=== PATIENT | female | born 1995 | race Caucasian/White ===

== ENCOUNTER 2016-11-21 08:08 | Emergency (ER) | payer OTHER ==
[2016-11-21 08:13] VITALS: BP 124/78; TEMP 98.4; BMI 29.9
[2016-11-21] MEDS ORDERED: LACTATED RINGERS 1,000 ML IV STA (08:25)
[2016-11-21 08:56] LABS: BASOPHILS % (AUTO) 0.3 % (0.0-3.0); EOSINOPHILS % (AUTO) 0.4 % (0.0-7.0); HEMATOCRIT 39.4 % (37.0-47.0); HEMOGLOBIN 13.2 g/dl (12.0-16.0); IMMATURE GRANULOCYTE % (AUTO) 0.7 % (0.0-5.0); LYMPHOCYTES # (AUTO) 2.7 K/uL (0.60-3.4); LYMPHOCYTES % (AUTO) 30.2 (10.0-50.0); MEAN CORPUSCULAR HEMOGLOBIN 27.8 pg (27.0-31.0); MEAN CORPUSCULAR HGB CONC 33.5 (31.8-35.4); MEAN CORPUSCULAR VOLUME 83.1 fl (81.0-99.0); MONOCYTES # (AUTO) 0.7 K/uL (0.4-2.0); MONOCYTES % (AUTO) 7.3 (0-10); NEUTROPHILS # (AUTO) 5.5 K/ul (2.0-6.9); NEUTROPHILS % (AUTO) 61.1; PLATELET COUNT 274 10^3/uL (140-440); RED BLOOD COUNT 4.74 10^6/ul (4.20-5.40); WHITE BLOOD COUNT 9.03 K/ul (4.6-10.2)
[2016-11-21 08:59] LABS: BILIRUBIN,URINE Negative (NEGATIVE); KETONES,URINE Negative (NEGATIVE); LEUKOCYTE ESTERASE ,URINE 1+ (NEGATIVE); NITRITE,URINE Negative (NEGATIVE); PH,URINE 6.5 (5-9); PROTEIN,URINE Negative (NEGATIVE); URINE, BLOOD Negative (NEGATIVE)
[2016-11-21 09:07] LABS: ADD URINE MICROSCOPIC YES
[2016-11-21 09:08] LABS: BACTERIA,URINE 1+ (NOT PRESENT)
--- NOTE | 2016-11-21 09:52 | US ---
EXAM: First trimester OB ultrasound. History: Vaginal bleeding, abdominal pain. Technique: Multiple sonographic images through the pelvis were obtained. Color duplex Doppler was used to interrogate vascular flow. Findings: A single live intrauterine identified with heart rate of 148 beats per minute. Gest ational sac, yolk sac and pole are seen. No fluid in the pelvis. Both ovaries are normal in size. Blood flow is documented within each ovary. 2.7 cm right ovarian cyst. And 0.6 cm small subc horionic hemorrhage. Average gestational age by ultrasound is 7 weeks and 1 day plus or minus 5 days. Estimated date of delivery is 07/09/2017 Impression: Single live intrauterine . Corpus luteal cyst within the right ovary. Small subchorionic hemorrhage.
--- NOTE | 2016-11-21 10:15 | ED.PDOC ---
General ED Provider: Dr. 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 Complaint/Exam Onset/Duration: this am Symptoms Are: Still present Timing: Constant Initial Severity: Moderate Current Severity: Mild Character: Reports: Bright red Aggravating: Reports: None Alleviating: Reports: None Associated Signs and Symptoms: Reports: Abdominal pain, Cramping Related History: Reports: Recent + test Patient Rh Status: Unknown Abdominal Findings: Present: None Adnexal Exam: Present: Normal Findings Differential Diagnoses: Threatened AB Review of Systems - Review Of Systems Constitutional: Reports: No symptoms Eyes: Reports: No symptoms Ears, Nose, Mouth, Throat: Reports: No symptoms Respiratory: Reports: No symptoms Cardiac: Reports: No symptoms GI: Reports: No symptoms : Reports: No symptoms Musculoskeletal: Reports: No symptoms Skin: Reports: No symptoms Neurological: Reports: No symptoms Endocrine: Reports: No symptoms Hematologic/Lymphatic: Reports: No symptoms All Other Systems: Reviewed and Negative Past Medical History - Past Medical History Endocrine: Reports: Unknown Cardiovascular: Reports: Unknown Respiratory: Reports: Unknown Hematological: Reports: Unknown Gastrointestinal: Reports: Unknown Genitourinary: Reports: Unknown Neuro/Psych: Reports: Unknown Musculoskeletal: Reports: Unknown Cancer: Reports: Unknown Last Menstrual Period: 09/06 - Surgical History General Surgical History: Reports: Unknown - Family History Family History: Reports: Unknown - Social History Smoking Status: Former smoker Hx Substance Use: No Alcohol Screening: None Lives: With family Physical Exam - Physical Exam Appearance: Well-appearing, No pain distress, Well-nourished Eyes: AYUSH, EOMI, Conjunctiva clear ENT: Ears normal, Nose normal, Oropharynx normal Neck: Supple Respiratory: Airway patent, Breath sounds clear, Breath sounds equal, Respirations nonlabored Cardiovascular: RRR GI/: Soft, Nontender, No masses, Bowel sounds normal, No Organomegaly Musculoskeletal: Normal strength, ROM intact, No edema, No calf tenderness Skin: Warm, Dry, Normal color Neurological: Sensation intact, Motor intact, Reflexes intact, Cranial nerves intact, Alert, Oriented Psychiatric: Affect appropriate, Mood appropriate Interpretation - Radiology Interpretation Radiology Interpretation By: Radiologist Radiology Results: Positive Re-Evaluation - Re-Evaluation Time of Re-Evaluation: 10:14 Status: Improved Vital Signs Stable: No Pain Level: 1 Appearance: NAD Lungs: Clear Skin: Warm and Dry Neuro: Alert and Oriented X3 CV: RRR Additional Comments: bleeding improved Critical Care Note - Critical Care Note Total Time (mins): 0 Course - Course Hematology/Chemistry: 11/21/16 08:35 Orders, Labs, Meds: Lab Review 11/21/16 08:35 WBC 9.03 RBC 4.74 Hgb 13.2 Hct 39.4 MCV 83.1 MCH 27.8 MCHC 33.5 RDW Coeff of Buck 13.9 Plt Count 274 Immature Gran % (Auto) 0.7 Neut % (Auto) 61.1 Lymph % (Auto) 30.2 [place] % (Auto) 7.3 Eos % (Auto) 0.4 Baso % (Auto) 0.3 Immature Gran # (Auto) 0.1 Neut # 5.5 Lymph # 2.7 Sullivan # 0.7 Eos # 0.0 Baso # 0.0 Urine Color Yellow Urine Clarity Clear Urine pH 6.5 Ur Specific [place] 1.010 Urine Protein Negative Urine Glucose (UA) Negative Urine Ketones Negative Urine Blood Negative Urine Nitrite Negative Urine Bilirubin Negative Urine Urobilinogen 0.2 Ur Leukocyte Esterase 1+ Urine Microscopic RBC 0-2 Urine Microscopic WBC 5-10 Ur Squamous Epith Cells 2-5 Urine Bacteria 1+ Orders Category Date Time Status IV [ED IV/MEDIPORT/POWERPORT] .ONCE EMERGENCY 11/21/16 08:25 Active CBC W/ AUTO DIFF Stat LAB 11/21/16 08:35 Completed COMPREHENSIVE METABOLIC PANEL Stat LAB 11/21/16 08:35 Received HCG,QUANTITATIVE Stat LAB 11/21/16 08:35 Received UA [URINALYSIS C & S IF INDICATED] Stat LAB 11/21/16 08:35 Completed URINE CULTURE Stat LAB 11/21/16 09:08 Received 0.9 % Sodium Chloride [Saline Flush] MEDS 11/21/16 08:25 Active 1 syr IVF PRN PRN Ringers Lactated Solution [Lactated Ringers] 1,000 ml MEDS 11/21/16 08:25 Active IV 100 mls/hr ULTRASOUND OB/TV [U/S OB/TV] Stat RADS 11/21/16 08:55 Completed Medications Generic Name Dose Route Start Last Admin Trade Name Freq PRN Reason Stop Dose Admin Lactated Ringer's 1,000 mls @ 100 mls/hr 11/21/16 08:25 11/21/16 08:47 Lactated Ringers IV 11/21/16 18:24 100 mls/hr .Q10H STA Administration Sodium Chloride 1 syr 11/21/16 08:25 11/21/16 08:48 Saline Flush IVF 1 syr PRN PRN Administration To flush IV Vital Signs: Temp Pulse Resp BP Pulse Ox 11/21/16 08:09 98.4 F 80 20 124/78 99 Departure - Departure Time of Disposition: 10:15 Disposition: TSF SHORT-TRM HOSP Discharge Problem: Threatened Instructions: Threatened Miscarriage (ED) Condition: Good Pt referred to PMD for follow-up: Yes Allergies/Adverse Reactions: Allergies No Known Allergies Allergy (Unverified 11/21/16 08:15) Home Medications: Ambulatory Orders Vit W-Ca,Fe,FA(<1 mg) [ Vitamins] 1 each PO DAILY 11/21/16 Transfer Form Completed: Yes Disposition Discussed With: Patient
[2016-11-21 10:31] LABS: POTASSIUM 3.7 mmol/L (3.5-5.10)
[2016-11-21 10:32] LABS: ALBUMIN/GLOBULIN RATIO 1.08; ANION GAP 15.7; BUN/CREATININE RATIO 13.33; CALCIUM 9.1 mg/dL (8.2-10.2); CREATININE 0.6 mg/dL (0.60-1.30); TOTAL PROTEIN 7.7 g/dL (6.4-8.2)
[2016-11-21 10:52] LABS: BILIRUBIN,TOTAL 0.26 mg/dL (0.00-1.20)
== END 2016-11-21 10:50 | disposition short-term general hospital (02) ==
LOC: ED 08:08
DX: O20.0 Threatened abortion (principal)
CPT/HCPCS: 36415; 80053; 81001; 84702; 85025; 87086; 96361; 99285

== ENCOUNTER 2016-11-21 10:50 | Outpatient (CLI) ==
[2016-11-21 08:13] VITALS: BMI 29.9
== END 2016-11-21 10:51 ==
LOC: AMBL 10:50
PROVIDERS: ATTEND Family Medicine
DX: N93.8 Other specified abnormal uterine and vaginal bleeding (principal); Z33.1 Pregnant state, incidental

== ENCOUNTER 2018-03-13 13:54 | Observation (INO) ==
[2018-03-13] MEDS ORDERED: ATIVAN IVP STA (14:08)
--- NOTE | 2018-03-13 15:17 | CT ---
EXAM: CTA of the chest. History: Chest pain. Comparison: CT abdomen pelvis 10/21/2017 Technique: Multiplanar CT images through the thorax were obtained following administration of IV con trast. MIP images and 3-D reconstructions were also acquired. Findings: Heart is upper limits of normal. No pericardial effusion. No thoracic aortic aneurysm. No pulmonary arterial filling defects. No pathologically enlarged thoracic lymph nodes. Dependent a telectasis. No consolidated pneumonia. No pleural fluid and no pneumothorax. No suspicious lung mas ses or lung nodules. A few calcified granulomas are seen within the thorax. Within the visualized upper abdomen, no acute findings. No acute osseous abnormalities. Impression: No pulmonary embolism and no consolidated pneumonia. Old granulomatous disease
--- NOTE | 2018-03-13 16:23 | ED.PDOC ---
General ED Provider: Dr. JOSSELINE OTOOLE Chief Complaint: Chest Pain Stated Complaint: CHEST PAIN Time Seen by Physician: 14:00 Mode of Arrival: Wheelchair Information Source: Patient Exam Limitations: No limitations Nursing and Triage Documentation Reviewed and Agree: Yes Does patient meet sepsis criteria?: No If yes, has appropriate treatment been initiated?: No System Inflammatory Response Syndrome: Not Applicable Sepsis Protocol: For patient's 13 years and over: Temp is 96.8 and below OR 101 and greater Pulse >90 BPM Resp >20/minute Acutely Altered Mental Status Are patient's symptoms suggestive of a new infection, such as: -Pneumonia -Skin, Soft Tissue -Endocarditis -UTI -Bone, Joint Infection -Implantable Device -Acute Abdominal Infection -Wound Infection -Meningitis -Blood Stream Catheter Infection -Unknown Cardiovascular Complaint Exam - Chest Pain Complaint/Exam Onset: Gradual Duration: 1 HR Symptoms Are: Still present Timing: Constant Length of Chest Pain Episodes: 1 HR Initial Severity: Moderate Current Severity: Moderate Location: Reports: Midsternal Pain Radiates: Reports: None Character: Reports: Dull Aggravating: Reports: None Alleviating: Reports: Rest Associated Signs and Symptoms: Reports: Cough. Denies: Diaphoresis, Nausea, Vomiting, Fever, Palpitations, Hemoptysis, Back pain, Abdominal pain, Dizziness , Short of air, Calf pain, Calf swelling Related History: Reports: Similar episode. Denies: Current Andrew Inhibitors, Current ARBs, Current Beta Komal, Current Ca Ernst.Komal, Current Diuretic, Rx noncompliance Related Surgical History: Reports: None History of Healthcare-Acquired Pneumonia: Reports: No AMI/ACS Risk Factors: Reports: None TAD Risk Factors: Reports: None Pulmonary Embolism Risk Factors: Reports: None Prior Care for this Complaint: No Recent Stress Test: No Recent Echo/LV Function: No JVD Present: No Subcutaneous Emphysema Present: No Diminshed Breath Sounds: No Bilateral Pulses Present: Yes Unequal Pulses Noted: No If Risk Factors for AMI/ACS Consider: EKG Review of Systems - Review Of Systems Constitutional: Reports: No symptoms Eyes: Reports: No symptoms Ears, Nose, Mouth, Throat: Reports: No symptoms Respiratory: Reports: No symptoms Cardiac: Reports: Chest pain GI: Reports: No symptoms : Reports: No symptoms Musculoskeletal: Reports: No symptoms Skin: Reports: No symptoms Neurological: Reports: No symptoms Endocrine: Reports: No symptoms Hematologic/Lymphatic: Reports: No symptoms All Other Systems: Reviewed and Negative Past Medical History - Past Medical History Endocrine: Reports: Unknown Cardiovascular: Reports: Unknown Respiratory: Reports: Unknown Hematological: Reports: Unknown Gastrointestinal: Reports: Unknown Genitourinary: Reports: Unknown Neuro/Psych: Reports: Unknown Musculoskeletal: Reports: Unknown Cancer: Reports: Unknown Last Menstrual Period: bleeding now from miscarriage - Surgical History General Surgical History: Reports: Unknown - Family History Family History: Reports: Unknown - Social History Smoking Status: Former smoker Hx Substance Use: No Alcohol Screening: None Physical Exam - Physical Exam Appearance: Well-appearing, No pain distress, Well-nourished Eyes: AYUSH, EOMI, Conjunctiva clear ENT: Ears normal, Nose normal, Oropharynx normal Respiratory: Airway patent, Breath sounds clear, Breath sounds equal, Respirations nonlabored Cardiovascular: RRR, Pulses normal, No rub, No murmur GI/: Soft, Nontender, No masses, Bowel sounds normal, No Organomegaly Musculoskeletal: Normal strength, ROM intact, No edema, No calf tenderness Skin: Warm, Dry, Normal color Neurological: Sensation intact, Motor intact, Reflexes intact, Cranial nerves intact, Alert, Oriented Psychiatric: Affect appropriate, Mood appropriate Physician Notification - Case Discussed Physician Notified: SOLOMON Time of Notification: 16:24 Admit To: Inpatient Critical Care Note - Critical Care Note Total Time (mins): 0 Course - Course Hematology/Chemistry: 03/13/18 14:15 03/13/18 14:15 Orders, Labs, Meds: Lab Review 03/13/18 03/13/18 14:15 14:15 WBC 7.03 RBC 4.56 Hgb 12.6 Hct 37.8 MCV 82.9 MCH 27.6 MCHC 33.3 RDW Coeff of Buck 13.6 Plt Count 211 Immature Gran % (Auto) 0.4 Neut % (Auto) 69.3 Lymph % (Auto) 22.6 [place] % (Auto) 7.1 Eos % (Auto) 0.3 Baso % (Auto) 0.3 Immature Gran # (Auto) 0.0 Neut # (Auto) 4.9 Lymph # (Auto) 1.6 [place] # (Auto) 0.5 Eos # (Auto) 0.0 Baso # (Auto) 0.0 Sodium 137 Potassium 3.9 Chloride 105 Carbon Dioxide 20 L Anion Gap 15.9 BUN 7 Creatinine 0.62 Estimated GFR (MDRD) 118.00 BUN/Creatinine Ratio 11.29 Glucose 98 Calcium 9.2 Total Bilirubin 0.5 AST 23 ALT 20 Alkaline Phosphatase 58 Total Creatine Kinase 95 Troponin I < 0.0100 Total Protein 7.5 Albumin 3.8 Globulin 3.7 Albumin/Globulin Ratio 1.03 Orders Category Date Time Status EKG-(ED ONLY) Stat CARDIO 03/13/18 14:08 Completed NPO REMINDER: IMAGING ONCE CARE 03/13/18 14:08 Active ED IV/MEDIPORT/POWERPORT .ONCE EMERGENCY 03/13/18 14:08 Active CBC W/ AUTO DIFF Stat LAB 03/13/18 14:15 Completed COMPREHENSIVE METABOLIC PANEL Stat LAB 03/13/18 14:15 Completed CREATINE KINASE Stat LAB 03/13/18 14:15 Completed TROPONIN I Stat LAB 03/13/18 14:15 Completed 0.9 % Sodium Chloride [Saline Flush] MEDS 03/13/18 14:08 Active 1 syr IVF PRN PRN Lorazepam [Ativan] MEDS 03/13/18 14:08 Discontinued 1 mg IVP ONCE STA CT CHEST PE PROTOCOL Stat RADS 03/13/18 14:07 Completed Medications Generic Name Dose Route Start Last Admin Trade Name Freq PRN Reason Stop Dose Admin Sodium Chloride 1 syr 03/13/18 14:08 03/13/18 14:16 Saline Flush IVF 1 syr PRN PRN Administration To flush IV Discontinued Medications Generic Name Dose Route Start Last Admin Trade Name Freq PRN Reason Stop Dose Admin Lorazepam 1 mg 03/13/18 14:08 03/13/18 14:15 Ativan IVP 03/13/18 14:09 1 mg ONCE STA Administration Vital Signs: Temp Pulse Resp BP Pulse Ox 03/13/18 13:55 98.3 F 89 28 H 139/98 H 98 ALEXANDRA Risk Score ALEXANDRA Risk Score: Risk Score Odds of by 30D 0 0.1 (0.1-0.2) 1 0.3 (0.2-0.3) 2 0.4 (0.3-0.5) 3 0.7 (0.6-0.9) 4 1.2 (1.0-1.5) 5 2.2 (1.9-2.6) 6 3.0 (2.5-3.6) 7 4.8 (3.8-6.1) Departure - Departure Time of Disposition: 16:24 Disposition: ADMITTED INPATIENT Discharge Problem: Chest pain Instructions: Chest Pain (ED), Angina (DC) Condition: Good Pt referred to PMD for follow-up: Yes IPMP verified?: No Additional Instructions: Please call your Family Physician as soon as possible to schedule a follow-up appointment. Allergies/Adverse Reactions: Allergies No Known Allergies Allergy (Verified 03/13/18 14:02) Home Medications: Ambulatory Orders 1 [No Reported Medications] 03/13/18 Disposition Discussed With: Patient, Family
[2018-03-13] MEDS ORDERED: NORVASC PO STA (16:28)
[2018-03-13] MEDS ORDERED: ZOFRAN 4 MG/2 ML IVP STA (17:02)
[2018-03-13] MEDS ORDERED: ZOFRAN 4 MG/2 ML IVP PRN (17:02)
[2018-03-13] MEDS ORDERED: GI COCKTAIL PO STA (17:05)
[2018-03-13] MEDS ORDERED: TORADOL IVP STA (17:05)
[2018-03-13] MEDS ORDERED: PROTONIX IV IVP STA (17:07)
[2018-03-13 21:48] VITALS: BMI 33.4
[2018-03-14] MEDS ORDERED: PROTONIX IV IVP SCH (09:00)
[2018-03-14] MEDS ORDERED: NON-FORMULARY MEDICATION (Ferrous Sulfate [Iron] 325 MG) PO SCH (09:00)
[2018-03-14] MEDS ORDERED: FERROUS SULFATE PO SCH (09:00)
[2018-03-14 14:31] VITALS: BP 102/64; TEMP 98.3
--- NOTE | 2018-03-15 08:56 | STRESSECHO ---
Date of Test:03/14/18 Ordering Physician: DR. 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: CHEST PAIN Smoking History: NO Height: 65" Weight : 201 LBS Current Medications: IRON PILLS Physical Findings: S1, S2, NO S3 Resting EKG: SINUS RHYTHM/ NO ACUTE CHANGES Target Heart Rate: 166/196 S-T SEGMENT STAGE MPH/GRADE HEART RATE BPM BLOOD PRESSURE MMHG RHYTHM +/- ELEVATION DEPRESSION SYMPTOMS,COMMENTS AT REST 72 120/68 SR X NONE 1 1.7/10% 130 140/80 SR X NONE 2 2.5/12% 150 148/72 SR X NONE 3 3.4/14% 4 4.2/16% 5 5.0/18% Immediately After 172 SR X FATIGUE Minutes Post Exercise 4:00 80 120/70 SR X NO COMMENTS Minutes Post Exercise DURATION OF EXERCISE: 7:00 MAXIMUM HEART RATE REACHED: 172 BPM REASON FOR TERMINATION: FATIGUE 98% OXYGEN SATURATION ON ROOM AIR WITH EXERCISE METS: 10.1 INTERPRETATION: 1. NO EVIDENCE OF ISCHEMIA BY ST-T WAVE 2. NO CHEST PAIN OR DISCOMFORT 3. BLOOD PRESSURE RESPONSE: NORMAL AT REST AND WITH EXERCISE 4. NO ARRHYTHMIAS NORMAL LEFT VENTRICULAR CONTRACTILITY--RESTING AND POST EXERCISE MTDD
--- NOTE | 2018-03-15 08:58 | ECHOSTRESS ---
Date of Exam: 03/14/18 Ordering Physician: DR. AALIYAH SOLOMON Reason for Echo: CHEST PAIN M-Mode Normal Adult Results LV Dimensions Normal Adult Results AoV Opening excursions >1.6 LVEDD-base- 3.5-5.8 Ao root dimensions 2.0-3.7 LVESD-base- 3.1-4.6 L. Atrium dimensions 1.9-3.8 Post. Wall thickness 0.8-1.1 IV septum (thickness) 0.7-1.2 Post. Wall excursion 0.72-1.3 Septal motion Systolic motion R. Ventricular cavity 1.5-2.0 LVEF 60% Paradoxical septal wall motion 2-D: NORMAL LEFT VENTRICULAR CONTRACTILITY--RESTING AND POST EXERCISE M-MODE: MV: AV: TV: PV: CHAMBER SIZE: WALL MOTION: NORMAL LEFT VENTRICULAR CONTRACTILITY--RESTING AND POST EXERCISE PERICARDIUM: INTERPRETATION: 1. NORMAL LEFT VENTRICULAR CONTRACTILITY--RESTING AND POST EXERCISE MTDD
--- NOTE | 2018-03-15 09:01 | ECHO2D ---
Date of Exam: 03/14/18 Ordering Physician: DR. AALIYAH SOLOMON Room #: [id number] Reason for Echo: CHEST PAIN M-Mode Normal Adult Results LV Dimensions Normal Adult Results AoV Opening excursions >1.6 >1.6 LVEDD-base- 3.5-5.8 4.6 Ao root dimensions 2.0-3.7 2.6 LVESD-base- 3.1-4.6 L. Atrium dimensions 1.9-3.8 3.5 Post. Wall thickness 0.8-1.1 1.1 IV septum (thickness) 0.7-1.2 1.1 Post. Wall excursion 0.72-1.3 NORMAL Septal motion NORMAL Systolic motion R. Ventricular cavity 1.5-2.0 NORMAL LVEF 60% 56% Paradoxical septal wall motion NORMAL 2-D : 2-D M Mode Echocardiogram was performed using apical four chamber and left parasternal long and short axis views. Mitral, tricuspid and aortic valves appear to be normal. Contractility of the left ventricle seems to be normal, so is the cavity size. Left atrial cavity size and aortic root appear to be normal. There is no pericardial effusion. There is no thrombus noted in the left ventricular or left aortic cavity. No mitral valve prolapse noted. M-MODE: MV: NORMAL AV: NORMAL TV: NORMAL PV: CHAMBER SIZE: NORMAL WALL MOTION: NORMAL PERICARDIUM: NORMAL INTERPRETATION: 1. NORMAL 2 "D" "M" MODE ECHO MTDD
--- NOTE | 2018-03-20 09:33 | PN ---
DATE OF SERVICE: 03/13/18 - ADMITTING NOTE SUBJECTIVE: 22-year-old white female was seen in the emergency room with chest pain. The patient had chest pain substernal started after she had been to [employer]. The patient also had some nausea and queasy feeling for the past two days with some reflux symptoms. The patient had miscarriage two weeks ago. The patient has three children, , engaged to another man. Nonsmoker. The patient has no history of cardiovascular disease. She gives history of SVT during the last . REVIEW OF SYSTEMS: CONSTITUTIONAL: No night sweats. No fatigue, malaise, lethargy. No fever or chills. HEENT: Eyes: No visual changes. No eye pain. No eye discharge. ENT: No runny nose. No epistaxis. No sinus pain. No sore throat. No odynophagia. No congestion. RESPIRATORY: No cough, no congestion. No hemoptysis. No shortness of breath. CARDIOVASCULAR: The patient had chest pain, midsternal going to the left shoulder in the back. No angina symptoms. No CHF symptoms. No palpitations. No orthopnea. GASTROINTESTINAL: Reflux type of symptoms with nausea. No abdominal pain. No vomiting. No diarrhea or constipation. No hematemesis. No hematochezia. GENITOURINARY: No urgency. No frequency. No dysuria. No hematuria. No obstructive symptoms. No discharge. No pain. No significant abnormal bleeding. MUSCULOSKELETAL: No musculoskeletal pain; no joint swelling. NEUROLOGICAL: No headache. No neck pain. No syncope. No seizures. No dizziness. PSYCHIATRIC: Not anxious. No depression. No suicidal thoughts. No homicidal thoughts. SKIN: No rash. No lesions. No wounds. ENDOCRINE: No unexplained weight loss. No weight gain. HEMATOLOGIC/LYMPHATIC: No anemia. No purpura. No petechiae. No prolonged or excessive bleeding. No palpable lymph nodes. PHYSICAL EXAMINATION: GENERAL: The patient is oriented to time, place and person. HEENT: Head normocephalic, atraumatic. Eyes: Extraocular muscles are intact. Pupils are equal, round and reactive to light and accommodation. Ears: No lesions. Nose appeared normal. Throat: No exudate or erythema. NECK: Supple. No JVP, no carotid bruit. No lymphadenopathy or thyromegaly. LUNGS: Clear to auscultation. Percussion note normal. Chest symmetrical. HEART: S1, S2, no S3. No murmurs. No cyanosis or clubbing. No ascites. Pulses: Dorsalis pedis and posterior tibial pulses +1 to +2 both sides. ABDOMEN: Soft. Nontender. Bowel sounds active. No CVA tenderness. No mass felt. EXTREMITIES: Pedal pulses +1 bilaterally. Full range of motion of all extremities, equal. NEUROLOGIC: No focal deficit. Cranial nerves II through XII are grossly intact. No headache, no double vision or headache. SKIN: Not dry. Intact. Turgor - normal. LYMPHATIC: No palpable lymph nodes/no lymphedema. MUSCULOSKELETAL: Normal joints with no swelling. Muscle tone is normal. ASSESSMENT: 1. CHEST PAIN SEEMS TO BE NONCARDIAC WITH NORMAL EKG AND NORMAL CARDIAC MARKERS 2. NAUSEA AND REFLUX TYPE OF SYMPTOMS FOR THE PAST TWO DAYS 3. RECENT HISTORY OF MISCARRIAGE 4. SVT DURING LAST PLAN: 1. Telemetry 2. Cardiac markers 3. Serial EKGs 4. Echocardiogram and stress echo in the morning 5. The patient has already had CT angiogram, pulmonary embolism protocol with no emboli. 6. The patient is given Protonix 40 mg twice a day. 7. GI cocktail 8. Toradol 30 mg IV 9. Zofran 4 mg IV now and q.6hr TIME SPENT: More than 30 minutes. Plan and coordination of the patient's care discussed in the presence of nurse. JARETT
--- NOTE | 2018-03-20 09:54 | PN ---
DATE OF SERVICE: 03/14/18 SUBJECTIVE: 22-year-old white female hospitalized on observation with chest pain. The patient's condition has improved. She doesn't have any chest pain. She is up and about, feeling a lot better. There was a question of left upper extremity numbness which comes very likely from muscular type of pain, which was more with left shoulder movement. REVIEW OF SYSTEMS: CONSTITUTIONAL: No night sweats. No fatigue, malaise, lethargy. No fever or chills. HEENT: Eyes: No visual changes. No eye pain. No eye discharge. ENT: No runny nose. No epistaxis. No sinus pain. No sore throat. No odynophagia. No congestion. RESPIRATORY: No cough, no congestion. No hemoptysis. No shortness of breath. CARDIOVASCULAR: No angina symptoms. No CHF symptoms. No atypical chest pain for CAD. No palpitations. No orthopnea. GASTROINTESTINAL: No abdominal pain. No nausea or vomiting. No diarrhea or constipation. No hematemesis. No hematochezia. GENITOURINARY: No urgency. No frequency. No dysuria. No hematuria. No obstructive symptoms. No discharge. No pain. No significant abnormal bleeding. MUSCULOSKELETAL: No musculoskeletal pain; no joint swelling. NEUROLOGICAL: No headache. No neck pain. No syncope. No seizures. No dizziness. PSYCHIATRIC: Not anxious. No depression. No suicidal thoughts. No homicidal thoughts. SKIN: No rash. No lesions. No wounds. ENDOCRINE: No unexplained weight loss. No weight gain. HEMATOLOGIC/LYMPHATIC: No anemia. No purpura. No petechiae. No prolonged or excessive bleeding. No palpable lymph nodes. PHYSICAL EXAMINATION: GENERAL: The patient is oriented to time, place and person. VITAL SIGNS: Temperature 98.3, pulse 77, respiratory rate 20, BP 96/60. Pulse ox 98%. HEENT: Head normocephalic, atraumatic. Eyes: Extraocular muscles are intact. Pupils are equal, round and reactive to light and accommodation. Ears: No lesions. Nose appeared normal. Throat: No exudate or erythema. NECK: Supple. No JVD, no carotid bruit. No lymphadenopathy or thyromegaly. LUNGS: Decreased breath sounds but clear to auscultation. Percussion note normal. Chest symmetrical. HEART: S1, S2, no S3. No murmurs. No cyanosis or clubbing. No ascites. Pulses: Dorsalis pedis and posterior tibial pulses +1 to +2 both sides. ABDOMEN: Soft. Nontender. Bowel sounds active. No CVA tenderness. No mass felt. EXTREMITIES: No edema. Full range of motion of all extremities, equal. NEUROLOGIC: No focal deficit. Cranial nerves II through XII are grossly intact. No headache, no double vision or headache. SKIN: Not dry. Intact. Turgor - normal. LYMPHATIC: No palpable lymph nodes/no lymphedema. MUSCULOSKELETAL: Normal joints with no swelling. Muscle tone is normal. LABS: Hemoglobin 12.6, hematocrit 37, WBC 7,000, normal differential. Creatinine 0.67 , potassium 3.9. ASSESSMENT: 1. CHEST PAIN SEEMS TO BE NONCARDIAC HAPPENED PRIOR TO HOSPITALIZATION 2. HISTORY OF SVT TWO TO THREE YEARS AGO WITH CHILDBIRTH 3. OBESITY WITH BMI OF 33 PLAN: Echo and stress echo which was done. Echo showed normal LV contractility, no valvular problems. Stress echo normal Lul protochol. The patient walked for more than 7 minutes and reached the target heart rate with no chest pain, no ST wave changes. LV contractility at rest post exercise normal. The patient's condition is normal. I explained that likely her chest pain could be from reflux. Advised to lose weight. Coronary artery disease risk factors discussed with the patient. Mother in the room, advised to have primary care. I volunteered to see the patient but also advised to followup with [facility] - she goes to [place] at [place]. Advised strict followup with them. The patient had miscarried two weeks ago. CONDITION: Stable. TIME SPENT: More than 30 minutes. Plan and coordination of the patient's care discussed in the presence of nurse. JARETT
--- NOTE | 2018-03-20 10:49 | DS ---
DATE OF SERVICE: 03/14/18 FINAL DIAGNOSIS: 1. CHEST PAIN LIKELY NONCARDIAC COULD BE ESOPHAGEAL SPASM 2. HISTORY OF SVT 3. HISTORY OF MISCARRIAGE TWO WEEKS AGO 4. MILD ANEMIA RECOMMENDATIONS: 1. Zantac 150 mg twice a day 2. Antireflux measures discussed 3. Counseling for diet done - the patient's BMI is 33 DISCHARGE INSTRUCTIONS: Followup appointment with on 03/17/18. MEDICATIONS AT DISCHARGE: Ferrous Sulfate 325 mg p.o. b.i.d. NEW PRESCRIPTIONS: Zantac 150 mg twice a day DIET INSTRUCTIONS: Heart Healthy ACTIVITY: As patient tolerates. SMOKING: N/A DISEASE SPECIFIC EDUCATION: Reflux precautions Medications Followup appointment Counseling for weight loss, diet HOSPITAL COURSE: 22-year-old white female hospitalized with chest pain. She had prior to coming to the hospital which was substernal heaviness. The patient's telemetry and cardiac markers were negative. Stress echo was negative for ischemia. Echo was normal. The patient was explained about CAD and risk factors, how to modify them. Advised to lose weight, counseling for weight done. Lipid profile was not done during this hospital stay but should be done as an outpatient. She was advised to come to see me on Friday. No work until released. TIME SPENT: More than 60 minutes. JARETT
--- NOTE | 2018-03-20 10:50 | PN ---
CODING FOR BILLIN03/13/18 LEVEL 5 03/14/18 DISCHARGE MTDD
== END 2018-03-14 17:15 | disposition home or self-care (01) ==
LOC: ED 13:54 → MEDSURG A 16:35 → INTOOBSV 16:35
PROVIDERS: ADMIT Internal Medicine; ATTEND Internal Medicine
DX: R07.9 Chest pain, unspecified (principal)
CPT/HCPCS: 36415; 80053; 82550; 84439; 84443; 84484; 85025; 93005; 93010; 96365; 96366; 96375; 99217; 99220; 99284

== ENCOUNTER 2018-03-24 17:46 | Emergency (ER) | payer OTHER ==
[2018-03-24 17:57] VITALS: BP 125/80; TEMP 99; BMI 32.9
[2018-03-24] MEDS ORDERED: SODIUM CHLORIDE 1,000 ML IV STA (18:14)
--- NOTE | 2018-03-24 18:16 | ED.PDOC ---
General ED Provider: Dr. 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 and advised to go to er Time Seen by Physician: 18:05 Mode of Arrival: Wheelchair Information Source: Patient Nursing and Triage Documentation Reviewed and Agree: Yes Does patient meet sepsis criteria?: No System Inflammatory Response Syndrome: Not Applicable Sepsis Protocol: For patient's 13 years and over: Temp is 96.8 and below OR 101 and greater Pulse >90 BPM Resp >20/minute Acutely Altered Mental Status Are patient's symptoms suggestive of a new infection, such as: -Pneumonia -Skin, Soft Tissue -Endocarditis -UTI -Bone, Joint Infection -Implantable Device -Acute Abdominal Infection -Wound Infection -Meningitis -Blood Stream Catheter Infection -Unknown AGRICULTURE INSPECTOR Complaint Exam - Vaginal Bleeding Complaint/Exam Onset/Duration: Today Symptoms Are: Still present Timing: Constant Initial Severity: Moderate Current Severity: Moderate # of Pads Per Hour: 2 Character: Reports: Bright red, Dark red, Clots Aggravating: Reports: Activity Alleviating: Reports: None Associated Signs and Symptoms: Reports: Dizziness, Lightheadedness, Cramping Related History: Reports: Recent + test : 4 Para: 1 Hx Total # of Abortions (Spontaneous & Elective): 1 (possibly 2 ( incomplete current AB) Ectopic Risk Factors: Reports: None Placental Abruption Risk Factors: Reports: None Abdominal Findings: Present: None Vulva Exam: Present: Normal Findings. Absent: Labial lesions, Labial erythema, Labial swelling, Labial mass, Abrasion, Laceration, Contusion Vaginal Exam: Present: Blood Cervical Exam: Present: Tenderness (cervical os slightly dilated) Differential Diagnoses: Ectopic (Spoke to OB pre owned sales consultant Dr Evans), Incomplete AB Review of Systems - Review Of Systems Constitutional: Reports: No symptoms Eyes: Reports: No symptoms Ears, Nose, Mouth, Throat: Reports: No symptoms Respiratory: Reports: No symptoms Cardiac: Reports: No symptoms GI: Reports: No symptoms : Reports: No symptoms, Pain, Other (vaginal bleeding) Musculoskeletal: Reports: No symptoms Skin: Reports: No symptoms Neurological: Reports: No symptoms Endocrine: Reports: No symptoms Hematologic/Lymphatic: Reports: No symptoms All Other Systems: Reviewed and Negative Past Medical History - Past Medical History Endocrine: Reports: Unknown Cardiovascular: Reports: Unknown Respiratory: Reports: Unknown Hematological: Reports: Unknown Gastrointestinal: Reports: Unknown Genitourinary: Reports: Unknown Neuro/Psych: Reports: Unknown Musculoskeletal: Reports: Unknown Cancer: Reports: Unknown Last Menstrual Period: now - Surgical History General Surgical History: Reports: Unknown - Family History Family History: Reports: Unknown - Social History Smoking Status: Former smoker Hx Substance Use: No Alcohol Screening: None Physical Exam - Physical Exam Appearance: Well-appearing, Obese Ill-appearing: Mild Pain Distress: Mild Eyes: AYUSH, EOMI, Conjunctiva clear ENT: Ears normal, Nose normal, Oropharynx normal Respiratory: Airway patent, Breath sounds clear, Breath sounds equal, Respirations nonlabored Cardiovascular: RRR, Pulses normal, No rub, No murmur GI/: Soft, Nontender, No masses, Bowel sounds normal, No Organomegaly, Tender (suprapubic region -see OB Complaint ) Musculoskeletal: Normal strength, ROM intact, No edema, No calf tenderness Skin: Warm, Dry, Normal color Neurological: Sensation intact, Motor intact, Reflexes intact, Cranial nerves intact, Alert, Oriented Psychiatric: Affect appropriate, Mood appropriate Re-Evaluation - Re-Evaluation Time of Re-Evaluation: 20:10 Status: Improved Vital Signs Stable: Yes Appearance: NAD Lungs: Clear Skin: Warm and Dry Neuro: Alert and Oriented X3 CV: RRR Additional Comments: Lower abdomen soft with slight tenderness Critical Care Note - Critical Care Note Total Time (mins): 60 Course - Course Hematology/Chemistry: 03/24/18 18:20 03/24/18 18:20 Orders, Labs, Meds: Lab Review 03/24/18 03/24/18 03/24/18 18:20 18:20 18:20 WBC 8.54 RBC 4.21 Hgb 11.7 L Hct 34.6 L MCV 82.2 MCH 27.8 MCHC 33.8 RDW Coeff of Buck 13.4 Plt Count 220 Immature Gran % (Auto) 0.4 Neut % (Auto) 56.4 Lymph % (Auto) 33.7 [place] % (Auto) 7.7 Eos % (Auto) 1.4 Baso % (Auto) 0.4 Immature Gran # (Auto) 0.0 Neut # (Auto) 4.8 Lymph # (Auto) 2.9 [place] # (Auto) 0.7 Eos # (Auto) 0.1 Baso # (Auto) 0.0 PT 9.8 INR 0.98 APTT 25.0 Sodium 138 Potassium 3.8 Chloride 106 Carbon Dioxide 21 Anion Gap 14.8 BUN 6 L Creatinine 0.65 Estimated GFR (MDRD) 112.00 BUN/Creatinine Ratio 9.23 Glucose 95 Calcium 9.4 Total Bilirubin 0.3 AST 17 ALT 14 Alkaline Phosphatase 56 Total Protein 7.1 Albumin 3.6 Globulin 3.5 Albumin/Globulin Ratio 1.03 HCG, Quant 5833.97 Orders Category Date Time Status IV [ED IV/MEDIPORT/POWERPORT] .ONCE EMERGENCY 03/24/18 18:15 Active CBC W/ AUTO DIFF Stat LAB 03/24/18 18:20 Completed CMP [COMPREHENSIVE METABOLIC PANEL] Stat LAB 03/24/18 18:20 Completed HCG,QUANTITATIVE Stat LAB 03/24/18 18:20 Completed PARTIAL THROMBOPLASTIN TIME Stat LAB 03/24/18 18:20 Completed PT WITH INR Stat LAB 03/24/18 18:20 Completed 0.9 % Sodium Chloride [Saline Flush] MEDS 03/24/18 18:15 Ordered 1 syr IVF PRN PRN Sodium Chloride 0.9% [Sodium Chloride] 1,000 ml MEDS 03/24/18 18:14 Active IV BOLUS Medications Generic Name Dose Route Start Last Admin Trade Name Freq PRN Reason Stop Dose Admin Sodium Chloride 1,000 mls @ 500 mls/hr 03/24/18 18:14 03/24/18 18:45 Sodium Chloride IV 03/24/18 20:13 500 mls/hr BOLUS STA Administration Sodium Chloride 1 syr 03/24/18 18:15 03/24/18 18:45 Saline Flush IVF 1 syr PRN PRN Administration To flush IV Vital Signs: Temp Pulse Resp BP Pulse Ox 03/24/18 17:46 99 F 84 16 125/80 98 Departure - Departure Time of Disposition: 21:30 Disposition: TSF SHORT-TRM HOSP Discharge Problem: Vaginal bleeding during , Threatened , Anemia affecting in first trimester Instructions: Threatened Miscarriage (ED) Condition: Fair Pt referred to PMD for follow-up: Yes (pcp) IPMP verified?: No (n/i) Allergies/Adverse Reactions: Allergies No Known Allergies Allergy (Verified 03/24/18 17:56) Home Medications: Ambulatory Orders Ferrous Sulfate [Iron] 325 mg PO BID 03/13/18 Transfer Form Completed: Yes Disposition Discussed With: Patient Additional Information: Spoke with Dr Evans -marketing operations associate OB at [facility], Explained condition and that we could not transfer to [place] where her OB is located due to lack of emergency Vehicle. Agreed to accept patient; Explained to patient. Agreed to transfer to [facility] where she currently located.
== END 2018-03-24 21:20 | disposition short-term general hospital (02) ==
LOC: ED 17:46
DX: O20.0 Threatened abortion (principal); D64.9 Anemia, unspecified; R42 Dizziness and giddiness
CPT/HCPCS: 36415; 80053; 84702; 85025; 85610; 85730; 86900; 96360; 96361; 99285

== ENCOUNTER 2018-04-11 10:14 | Emergency (ER) ==
[2018-04-11 10:21] VITALS: BP 119/80; TEMP 98.1; BMI 32.3
[2018-04-11] MEDS ORDERED: SODIUM CHLORIDE 1,000 ML IV STA (10:31)
[2018-04-11] MEDS ORDERED: MORPHINE 2 MG/ML SYRINGE IVP STA (10:31)
[2018-04-11] MEDS ORDERED: ZOFRAN 4 MG/2 ML IVP STA (10:31)
--- NOTE | 2018-04-11 10:35 | ED.PDOC ---
General ED Provider: Dr. CAITLIN LOVE-ER Chief Complaint: Rectal Pain Stated Complaint: its been hurting for 3 days with fever and chills--i just had a d and c at [facility] a few days ago Time Seen by Physician: 10:33 Mode of Arrival: Walk-In Information Source: Patient Exam Limitations: No limitations Nursing and Triage Documentation Reviewed and Agree: Yes Does patient meet sepsis criteria?: No System Inflammatory Response Syndrome: Not Applicable Sepsis Protocol: For patient's 13 years and over: Temp is 96.8 and below OR 101 and greater Pulse >90 BPM Resp >20/minute Acutely Altered Mental Status Are patient's symptoms suggestive of a new infection, such as: -Pneumonia -Skin, Soft Tissue -Endocarditis -UTI -Bone, Joint Infection -Implantable Device -Acute Abdominal Infection -Wound Infection -Meningitis -Blood Stream Catheter Infection -Unknown GI Complaint Exam - Rectal Complaint/Exam Patient Complains of: Reports: Rectal pain Onset/Duration: 3 days ago Symptoms Are: Still present Timing: Constant Initial Severity: Mild Current Severity: Moderate Location: Reports: Anal, Rectal Character: Reports: Dull Aggravating: Reports: Bowel movement, Sitting, Walking Associated Signs and Symptoms: Denies: Rectal bleeding, Blood-streaked stool, Black tarry stool, Bright red blood w/ stool, Blood without stool Related History: Reports: Hemorrhoids Rectal Exam: Present: External hemorrhoids, Tenderness, Erythema Differential Diagnoses: Hemorrhoids, Lisa-rectal Abcess Review of Systems - Review Of Systems Constitutional: Reports: No symptoms Eyes: Reports: No symptoms Ears, Nose, Mouth, Throat: Reports: No symptoms Respiratory: Reports: No symptoms Cardiac: Reports: No symptoms GI: Reports: No symptoms : Reports: No symptoms Musculoskeletal: Reports: No symptoms Skin: Reports: No symptoms Neurological: Reports: No symptoms Endocrine: Reports: No symptoms Hematologic/Lymphatic: Reports: No symptoms All Other Systems: Reviewed and Negative Past Medical History - Past Medical History Previously Healthy: Yes Endocrine: Reports: Unknown Cardiovascular: Reports: Unknown Respiratory: Reports: Unknown Hematological: Reports: Unknown Gastrointestinal: Reports: Unknown Genitourinary: Reports: Unknown Neuro/Psych: Reports: Unknown Musculoskeletal: Reports: Unknown Cancer: Reports: Unknown Last Menstrual Period: UNSURE - Surgical History General Surgical History: Reports: Unknown - Family History Family History: Reports: Unknown - Social History Smoking Status: Former smoker Hx Substance Use: No Alcohol Screening: None - Immunizations Tetanus Shot up to Date: Yes Physical Exam - Physical Exam Appearance: Well-appearing, No pain distress, Well-nourished Pain Distress: Moderate Eyes: AYUSH ENT: Ears normal, Nose normal, Oropharynx normal Neck: Supple Respiratory: Airway patent Cardiovascular: RRR GI/: Soft, Tender, Mass Musculoskeletal: Normal strength, ROM intact, No edema, No calf tenderness Skin: Warm, Dry, Normal color Neurological: Sensation intact Psychiatric: Affect appropriate, Mood appropriate Critical Care Note - Critical Care Note Total Time (mins): 0 Course - Course Orders, Labs, Meds: Orders Category Date Time Status ED IV/MEDIPORT/POWERPORT .ONCE EMERGENCY 04/11/18 10:30 Active BLOOD CULTURE (ED ONLY) Stat LAB 04/11/18 Ordered CBC W/ AUTO DIFF Stat LAB 04/11/18 10:30 Ordered COMPREHENSIVE METABOLIC PANEL Stat LAB 04/11/18 10:30 Ordered SERUM Stat LAB 04/11/18 Ordered URINALYSIS C & S IF INDICATED Stat LAB 04/11/18 10:30 Uncollected 0.9 % Sodium Chloride [Saline Flush] MEDS 04/11/18 10:30 Ordered 1 syr IVF PRN PRN Morphine Sulfate [Morphine 2 mg/ml Syringe] MEDS 04/11/18 10:31 Discontinued 2 mg IVP ONCE STA Ondansetron HCl/Pf [Zofran 4 mg/2 ml] MEDS 04/11/18 10:31 Discontinued 4 mg IVP ONCE STA Sodium Chloride 0.9% [Sodium Chloride] 1,000 ml MEDS 04/11/18 10:31 Active IV 100 mls/hr Medications Generic Name Dose Route Start Last Admin Trade Name Freq PRN Reason Stop Dose Admin Sodium Chloride 1,000 mls @ 100 mls/hr 04/11/18 10:31 Sodium Chloride IV 04/11/18 20:30 .Q10H STA Sodium Chloride 1 syr 04/11/18 10:30 Saline Flush IVF PRN PRN To flush IV Discontinued Medications Generic Name Dose Route Start Last Admin Trade Name Freq PRN Reason Stop Dose Admin Morphine Sulfate 2 mg 04/11/18 10:31 Morphine 2 Mg/Ml Syringe IVP 04/11/18 10:32 ONCE STA Ondansetron HCl 4 mg 04/11/18 10:31 Zofran 4 Mg/2 Ml IVP 04/11/18 10:32 ONCE STA Vital Signs: Temp Pulse Resp BP Pulse Ox 04/11/18 10:16 98.1 F 77 16 119/80 97 Departure - Departure Time of Disposition: 10:35 Disposition: TSF SHORT-TRM HOSP Discharge Problem: Rectal pain Instructions: Rectal Pain (ED) Condition: Good Pt referred to PMD for follow-up: Yes IPMP verified?: No Allergies/Adverse Reactions: Allergies No Known Allergies Allergy (Verified 04/11/18 10:22) Home Medications: Ambulatory Orders Ferrous Sulfate [Iron] 325 mg PO BID 03/13/18 Transfer Form Completed: Yes Disposition Discussed With: Patient
== END 2018-04-11 11:25 | disposition short-term general hospital (02) ==
LOC: ED 10:14
DX: K62.89 Other specified diseases of anus and rectum (principal); I95.9 Hypotension, unspecified; Z98.890 Other specified postprocedural states
CPT/HCPCS: 36415; 80053; 81001; 84703; 85025; 87040; 87086; 96361; 96374; 96375; 99284

== ENCOUNTER 2018-05-06 10:16 | Outpatient (CLI) ==
--- NOTE | 2018-05-06 11:49 | DI ---
EXAM: Four views of the left femur. History: Left thigh pain. Findings: No acute fracture or dislocation. No abnormal calcifications or radiopaque foreign bodies . Joint spaces are preserved. Impression: Unremarkable exam
--- NOTE | 2018-05-06 11:49 | DI ---
EXAM: Three views of the lumbar spine. History: Lower back pain. Findings: No acute fracture or subluxation of the lumbar spine. No abnormal calcifications or radiop aque foreign bodies. Disc space heights are relatively preserved. Sclerosis of the margins of the bi lateral sacroiliac joints. Impression: 1. No acute osseous abnormality of the lumbar spine. 2. Sclerosis of the sacroiliac joint margins could represent osteitis condensans ilii or sacroiliiti s. Consider correlation with an MRI of the pelvis to evaluate for active sacroiliitis.
== END 2018-05-06 10:17 | disposition home or self-care (01) ==
LOC: LAB 10:16
PROVIDERS: ATTEND Emergency Medicine
DX: M54.5 Low back pain (principal); M79.652 Pain in left thigh
CPT/HCPCS: 36415; 80053; 81025; 82550; 85025